=== PATIENT | female | born 1990 | race Caucasian/White ===

== ENCOUNTER 2021-09-12 13:36 | Outpatient (CLI) | payer OTHER, SELFPAY ==
[2021-09-12 14:42] LABS: Thyroid Stimulating Hormone Reflex 18.28 u/IU/mL (0.36-3.74)
[2021-09-12 14:44] LABS: Free T4 Free Thyroxine Reflex 0.93 ng/dL (0.76-1.46)
== END 2021-09-12 13:37 | disposition home or self-care (01) ==
LOC: CHSLAB 13:41
PROVIDERS: PCP Family Medicine; Visit Provider Physician Assistant
DX: E03.9 Hypothyroidism, unspecified (principal)
CPT/HCPCS: 36415; 84439; 84443

== ENCOUNTER 2022-02-25 00:32 | Emergency (ER) | payer OTHER, SELFPAY ==
--- NOTE | 2022-02-25 00:34 | ED.WOUNDLAC ---
HPI - Wound/Laceration General Chief Complaint: Extremity Injury, Upper Stated Complaint: CUT ON TIP OF FINGER Time Seen by Provider: 02/25/22 00:33 Source: patient and RN notes reviewed Mode of arrival: ambulatory Limitations: no limitations History of Present Illness HPI narrative: patient was cleaning and a porcelain bowl fell and broke cutting the tip of her finger. Onset (ago): minute(s) (15) Extremity Location: Right: hand ( tip of middle finger) Place: home Patient tetanus UTD: No Context: accidental Associated symptoms: pain Treatments prior to arrival: bandage Related Data Home Medications Medication Instructions Recorded Confirmed levothyroxine 125 mcg tablet 125 mcg PO DAILY 02/25/22 02/25/22 (Euthyrox) Allergies Allergy/AdvReac Type Severity Reaction Status Date / Time Penicillins Allergy Unknown Verified 10/10/21 15:37 Review of Systems Review of Systems: All systems reviewed & are unremarkable except as noted in HPI and below PMFSH Past Medical History Medical History (Updated 02/25/22 @ 00:58 by Kostas George MD) Hypothyroidism Surgical History Surgical History (Updated 02/25/22 @ 00:36 by Kostas George MD) Hx of cholecystectomy Family History Family History Mother Asthma Sibling Family history of anemia Family history of attention deficit hyperactivity disorder (ADHD) Other Cerebrovascular accident Diabetes mellitus Family history of allergic disorder Family history of cardiovascular disease Hypertension Social History Social History Smoking status: Never smoker Alcohol intake: current Exam Const: General: healthy appearing, no acute distress and alert Nutritional Appearance: well nourished and obese morbidly obese Orientation/consciousness: patient oriented x3 Limitations: no limitations HENMT: Head: normal to inspection Ears: external ears normal Face and sinus: normal facial exam Eyes: Conjunctivae: conjunctivae normal Pupils: Equal, round and reactive pupils present EOM: EOMs intact bilaterally Neck: Neck: normal visual inspection Chest: Chest palpation & inspection: normal inspection of the chest Resp: Effort & Inspection: normal respiratory effort Auscultation: clear to auscultation bilaterally Cardio: Rate: regular rate Rhythm: regular rhythm GI: GI Palp: Yes Soft to palpation and No Tenderness to palpation present (GI) Auscultation: normal bowel sounds Back/Spine/Pelvis: Cervical Spine: cervical ROM normal Thoracic/Lumbar Spine: thoraco-lumbar ROM normal Skin: General skin exam: normal color Wounds: wounds noted flap right palmar 3rd finger size (1 cm) Neuro: General: patient oriented x3, moves all extremities, no focal motor deficits and CN's II-XI intact bilaterally Speech: normal speech Gait exam (Neuro): Normal gait present Extrem: General: normal to inspection and no clubbing, cyanosis or edema Psych: Mental Status: mental status grossly normal Affect: normal affect Attitude: cooperative Course Vital Signs Vital signs: Vital Signs Temperature 36.4 C 02/25/22 00:35 Pulse Rate 95 02/25/22 00:35 Respiratory Rate 20 02/25/22 00:35 Blood Pressure 154/87 H 02/25/22 00:35 Pulse Oximetry 100 02/25/22 00:35 Oxygen Delivery Room Air 02/25/22 00:35 Temperature 36.4 C 02/25/22 00:35 Pulse Rate 95 02/25/22 00:35 Respiratory Rate 20 02/25/22 00:35 Blood Pressure 154/87 H 02/25/22 00:35 Pulse Oximetry 100 02/25/22 00:35 Oxygen Delivery Room Air 02/25/22 00:35 Procedures Laceration Laceration 1: Date: 02/25/22 Site: hand ( Tip of the middle finger) Side (If applicable): right Size (cm): 1 Description: flap Depth: simple, single layer Local Anesthetic: lidocaine 1% Pre-repair: wound explored and irrigated ====
[2022-02-25 00:35] VITALS: BP 154/87; PULSE 95; RESP 20; TEMP 36.4; O2SAT 100
[2022-02-25] MEDS: TETANUS,DIPHTHERIA,AC PERTUSSIS ADULT 0.5 ML (ADACEL) IM (01:15)
[2022-02-25] MEDS: NEOMYCIN/POLYMYXIN/BACITRACIN OINTMENT PACKET 1 PACKET TOPICAL (01:16)
[2022-02-25] MEDS: LIDOCAINE HCL 1% LOCAL INJ 10 ML VIAL INFILTRATE (01:17)
[2022-02-25 01:54] VITALS: BP 130/89; PULSE 85; RESP 18; TEMP 36.4; O2SAT 99
== END 2022-02-25 01:55 | disposition home or self-care (01) ==
PROVIDERS: Emergency Provider Emergency Medicine; PCP Family Medicine
DX: S61.212A Laceration without foreign body of right middle finger without damage to nail, initial encounter (principal); W45.8XXA Other foreign body or object entering through skin, initial encounter
CPT/HCPCS: 12001; 90471; 90715; 99282

== ENCOUNTER 2023-04-16 14:32 | Outpatient (CLI) | payer OTHER, SELFPAY ==
[2023-04-16 15:31] LABS: Thyroid Stimulating Hormone 0.06 uIU/mL (0.36-3.74)
== END 2023-04-16 14:33 | disposition home or self-care (01) ==
PROVIDERS: PCP Family Medicine; Visit Provider Physician Assistant
DX: E03.9 Hypothyroidism, unspecified (principal)
CPT/HCPCS: 36415; 84443

== ENCOUNTER 2024-05-13 14:35 | Emergency (ER) | payer OTHER, SELFPAY ==
[2024-05-13] VITALS (8 sets, daily range): BP systolic 113–135; BP diastolic 65–98; PULSE 78–81; RESP 15–18; TEMP 36.9; O2SAT 97–100
--- NOTE | ~2024-05-13 | XR_ITS ---
XR chest 1V portable DATE: 05/13/2024 14:52 INDICATION: Cough for 6 days TECHNIQUE: Portable upright AP chest on 05/13/2024 at 1450 hours COMPARISON: None FINDINGS: There is prominent consolidation in the right lower lung, likely due to pneumonia. Normal heart size. No hilar or mediastinal enlargement. No pleural effusion or pulmonary vascular con gestion or pneumothorax. IMPRESSION: Prominent right lower lung consolidation consistent with pneumonia Reviewed, dictated and finalized at location [facility]. [facility]
--- NOTE | 2024-05-13 14:40 | ED_ITS ---
HPI - URI/Sore Throat General Chief Complaint: Upper Respiratory Infection Stated Complaint: possible pneumonia Time Seen by Provider: 05/13/24 14:40 Source: patient Mode of arrival: ambulatory Limitations: no limitations History of Present Illness HPI Narrative: 33-year-old female, nonsmoker with a positive family history of asthma presents to the ED with a 5 day history of -- cough with purulent sputum -- fever with chills No chest pain or shortness of breath MD elicited complaint: fever and cough Consistency: constant Description of mucous: yellow Able to tolerate fluids by mouth: Yes Exacerbating factors: nothing Relieving factors: nothing Associated symptoms: denies other symptoms, fever and chills Treatments prior to arrival: none Related Data Home Medications Medication Instructions Recorded Confirmed levothyroxine 125 mcg tablet 150 mcg PO DAILY 02/25/22 05/13/24 (Euthyrox) sertraline 50 mg tablet 50 mg PO DAILY 05/13/24 05/13/24 Allergies Allergy/AdvReac Type Severity Reaction Status Date / Time Penicillins Allergy Unknown Hives Verified 05/13/24 14:39 Review of Systems Review of Systems: All systems reviewed & are unremarkable except as noted in HPI and below Constitutional: Constitutional: Reports as per HPI and Reports no additional constitutional complaints Eyes: Eyes: Reports as per HPI and Reports no additional eye complaints ENT: Reports system reviewed and no additional complaints, except as documented and Reports as per HPI Cardiovascular: Cardiovascular: Reports as per HPI and Reports no additional cardiovascular complaints Respiratory: Respiratory: Reports as per HPI, Reports no additional respiratory complaints, Reports chest congestion and Reports cough Gastrointestinal: Gastrointestinal: Reports as per HPI and Reports no additional gastrointestinal complaints Genitourinary: Genitourinary: Reports no additional female genitourinary complaints Comments: history of BTL Musculoskeletal: Musculoskeletal: Reports no additional musculoskeletal complaints and Reports as per HPI Integumentary/Breasts: Skin/Breast: Reports system reviewed and no additional complaints, except as docu and Reports as per HPI Neurologic: Reports system reviewed and no additional complaints, except as documented and Reports as per HPI Psychiatric: Psychiatric: Reports no additional psychiatric complaints and Reports as per HPI Endocrine: Endocrine: Reports no additional endocrine complaints and Reports as per HPI Hematologic/Lymphatic: Hematologic/Lymphatic: Reports no additional hematologic/lymphatic complaints and Reports as per HPI Allergic/Immunologic: Allergic/Immunologic: Reports no additional allergic/immunologic complaints and Reports as per HPI PMFSH Past Medical History Medical History Hypothyroidism Surgical History Surgical History Hx of cholecystectomy Family History Family History Mother Asthma Sibling Family history of anemia Family history of attention deficit hyperactivity disorder (ADHD) Other Cerebrovascular accident Diabetes mellitus Family history of allergic disorder Family history of cardiovascular disease Hypertension Social History Social History Smoking status: Never smoker Alcohol intake: current Exam Narrative: afebrile. Vitals are stable oxygen saturation 97% on room air. Const: General: healthy appearing Orientation/consciousness: patient oriented x3 Limitations: no limitations HENMT: Head: normal to inspection Ears: external ears normal and TM's normal bilaterally ( right tympanic membrane is scarred.) Face/Nose/Sinus: Normal external nose present Face and sinus: normal facial exam Mouth: Yes Normal oral and palatal mucosa present Throat: posterior oropharynx normal Eyes: Conjunctivae: conjunctivae normal Pupils: Equal, round and reactive pupils present EOM: EOMs intact bilaterally Direct Ophthalmoscopy: no photophobia Neck: Neck: normal visual inspection, no lymphadenopathy and no meningeal signs Chest: Chest palpation & inspection: normal inspection of the chest Resp: Effort & Inspection: normal respiratory effort Auscultation: rhonchi and diminished lung sounds Cardio: Rate: regular rate Rhythm: regular rhythm GI: GI Palp: Yes Soft to palpation Auscultation: normal bowel sounds : General: Yes no CVA tenderness Back/Spine/Pelvis: Back: no CVA tenderness Skin: General skin exam: normal color Rashes: no rashes Wounds: no woun ds Neuro: General: patient oriented x3, moves all extremities, no meningeal signs, no focal motor deficits and CN's II-XI intact bilaterally Cranial nerves: Yes Nystagmus not present Speech: normal speech Extrem: General: normal to inspection and no clubbing, cyanosis or edema Psych: Mental Status: mental status grossly normal Affect: normal affect Course Course Emergency Course: Cough with purulent sputum-- patient was noted to have right lower lobe pneumonia. The patient has a major reaction with penicillin. Do not want to try cephalosporins any of the major reaction to penicillin. Will treat her with Levaquin. The patient tested negative for influenza/ RSV/ COVID. Vital Signs Vital signs: Vital Signs Temperature 36.9 C 05/13/24 14:38 Pulse Rate 81 05/13/24 14:38 Respiratory Rate 18 05/13/24 14:38 Blood Pressure 135/89 05/13/24 14:38 Pulse Oximetry 97 05/13/24 14:38 Oxygen Delivery Room Air 05/13/24 14:38 Temperature 36.9 C 05/13/24 14:38 Pulse Rate 81 05/13/24 14:38 Respiratory Rate 18 05/13/24 14:38 Blood Pressure 135/89 05/13/24 14:38 Pulse Oximetry 97 05/13/24 14:42 Oxygen Delivery Room Air 05/13/24 14:42 MDM - URI/Sore Throat MDM Narrative Medical decision making narrative: Right lower lobe pneumonia Differential Diagnosis Differential diagnosis: Likely upper respiratory infection, viral infection and bronchitis Lab Data Attestation: I reviewed the patient's lab results. 05/13/24 16:02 05/13/24 16:02 Labs: Lab Results 05/13/24 05/13/24 Range/Units 15:06 16:02 WBC 5.0 (4.8-10.8) K/mm3 RBC 4.58 (4.20-5.40) M/mm3 Hgb 9.7 L (12.0-15.0) g/dL Hct 33.0 L (35.0-49.0) % MCV 72.1 L (78.0-102.0) fL MCH 21.2 L (27.0-31.0) pg MCHC 29.4 L (32-36) g/dL RDW 16.2 H (11.6-14.4) % Plt Count 232 (150-420) K/mm3 MPV 9.8 (9.2-11.8) fl Immature Gran % (Auto) 0.6 H (0.0-0.0) % Neut % (Auto) 59.9 (50.0-70.0) % Lymph % (Auto) 25.5 (18.0-42.0) % [place] % (Auto) 9.8 (2.0-11.0) % Eos % (Auto) 3.0 (1.0-6.0) % Baso % (Auto) 1.2 H (0.0-1.0) % Lymph # (Auto) 1.27 (1.10-4.50) K/mm3 [place] # (Auto) 0.49 (0.10-0.90) K/mm3 Eos # (Auto) 0.15 (0.02-0.50) K/mm3 Baso # (Auto) 0.06 (0.00-0.10) K/mm3 Abs Immat Gran (auto) 0.03 H (0.00-0.00) K/mm3 Absolute Neuts (auto) 2.98 (1.70-7.20) K/mm3 Absolute Nucleated RBC 0.00 (0.00-0.00) K/mm3 Nucleated RBC % 0.0 (0-0.0) % Sodium 140 (136-145) mmol/L Potassium 3.3 L (3.5-5.1) mmol/L Chloride 103 (98-108) mmol/L Carbon Dioxide 26 (21-32) mmol/L Anion Gap 11 (4-12) mmol/L BUN 7 (7-18) mg/dL Creatinine 0.87 (0.55-1.02) mg/dL Estim Creat Clear Calc 115 ml/min Estimated GFR > 60 (59 - ) Glucose 88 (70-99) mg/dL Calculated Osmolality 287 (285-295) mOsm/kg Lactic Acid 1.1 (0.4-2.0) mmol/L Calcium 8.6 (8.5-10.1) mg/dL Total Bilirubin 0.4 (0.00-1.00) mg/dL AST 21 (15-37) U/L ALT 20 (14-59) U/L Alkaline Phosphatase 73 (46-116) U/L Total Protein 7.2 (6.4-8.2) g/dL Albumin 3.1 L (3.4-5.0) g/dL Influenza A (RT-PCR) Negative (Negative) Influenza B (RT-PCR) Negative (Negative) RSV (RT-PCR) Negative (Negative) SARS-CoV-2 RNA (RT-PCR) Negative (Negative) Discharge Plan Discharge Clinical Impression: Pneumonia Qualifiers: Pneumonia type: due to unspecified organism Laterality: right Lung location: lower lobe of lung Qualified Code(s): J18.9 - Pneumonia, unspecified organism Patient Disposition: Home, Self-Care Condition: Stable Instructions: Antibiotic Form, Pneumonia (ED) Patient Language: Spanish Prescriptions: New levofloxacin 750 mg tablet 750 mg PO DAILY 5 Days Qty: 5 0RF No Action sertraline 50 mg tablet 50 mg PO DAILY levothyroxine [Euthyrox] 125 mcg tablet 150 mcg PO DAILY Follow-up/Referrals: Mg Rojas M.D. [Primary Care Provider] - Time of Disposition: 17:02
[2024-05-13] MEDS: IPRATROPIUM 0.5 MG/ALBUTEROL SULFATE 2.5 MG AMPUL.NEB 3 ML INHALATION (14:53)
[2024-05-13] MEDS: levoFLOXacin 750 MG/D5W 150 ML 750 MG/150 ML BAG 100 MG IVPB (15:23)
--- NOTE | 2024-05-13 15:23 | PC.NURSE ---
IV abx scanned and ready to start, Blood cultures not drawn, lab called to draw, will start after cultures are obtained.
--- NOTE | 2024-05-13 15:23 | PC.NURSE ---
Covid culture sent to lab
--- NOTE | 2024-05-13 16:03 | PC.NURSE ---
blood cultures obtained. antibiotics infusing at this time.
[2024-05-13 16:22] LABS: SARS-CoV-2 RNA PCR Negative (Negative)
[2024-05-13 16:23] LABS: Influenza A QL RT-PCR Negative (Negative); Influenza B QL RT-PCR Negative (Negative); RSV RNA, RT-PCR Negative (Negative)
[2024-05-13 16:24] LABS: Basophils Absolute Auto 0.06 K/mm3 (0.00-0.10); Basophils Percent Auto 1.2 % (0.0-1.0); Eosinophils Absolute Auto 0.15 K/mm3 (0.02-0.50); Hemoglobin 9.7 g/dL (12.0-15.0); Immature Granulocyte Absolute 0.03 K/mm3 (0.00-0.00); Immature Granulocyte Percent A 0.6 % (0.0-0.0); Lymphocytes Absolute Auto 1.27 K/mm3 (1.10-4.50); Lymphocytes Percent Auto 25.5 % (18.0-42.0); Mean Corpuscular HGB Conc 29.4 g/dL (32-36); Mean Corpuscular Hemoglobin 21.2 pg (27.0-31.0); Mean Corpuscular Volume 72.1 fL (78.0-102.0); Mean Platelet Volume 9.8 fl (9.2-11.8); Monocytes Absolute Auto 0.49 K/mm3 (0.10-0.90); Monocytes Percent Auto 9.8 % (2.0-11.0); Neutrophils Absolute Auto 2.98 K/mm3 (1.70-7.20); Neutrophils Percent Auto 59.9 % (50.0-70.0); Platelet Count Result 232 K/mm3 (150-420); Red Blood Count 4.58 M/mm3 (4.20-5.40); Red Cell Distribution Width 16.2 % (11.6-14.4)
[2024-05-13 16:43] LABS: Alanine Aminotransferase 20 U/L (14-59); Albumin Level 3.1 g/dL (3.4-5.0); Alkaline Phosphatase 73 U/L (46-116); Anion Gap 11 mmol/L (4-12); Aspartate Amino Transferase 21 U/L (15-37); Bilirubin,Total 0.4 mg/dL (0.00-1.00); Blood Urea Nitrogen 7 mg/dL (7-18); Calcium 8.6 mg/dL (8.5-10.1); Carbon Dioxide 26 mmol/L (21-32); Chloride 103 mmol/L (98-108); Estimated CRCL calculation 115 ml/min; Estimated Glomerular Filt Rate > 60; Glucose 88 mg/dL (70-99); Osmolality Calculated 287 mOsm/kg (285-295); Potassium 3.3 mmol/L (3.5-5.1); Sodium 140 mmol/L (136-145); Total Protein 7.2 g/dL (6.4-8.2)
[2024-05-13 16:47] LABS: Lactic Acid Reflex 1.1 mmol/L (0.4-2.0)
[2024-05-13 17:41] LABS: Thyroid Stimulating Hormone 9.01 uIU/mL (0.36-3.74)
--- NOTE | 2024-05-14 10:37 | PC.NURSE ---
Pharmacy is closed, prescription called into [facility] in [place] per patient request. Message left at [facility] to cancel prescription.
--- NOTE | 2024-05-15 12:33 | PC.NURSE ---
preliminary blood culture results x2: no growth to date.
== END 2024-05-13 17:19 | disposition home or self-care (01) ==
PROVIDERS: Emergency Provider Internal Medicine Critical Care Medicine; PCP Family Medicine
DX: J18.9 Pneumonia, unspecified organism (principal); E03.9 Hypothyroidism, unspecified; Z79.899 Other long term (current) drug therapy; Z20.822 Contact with and (suspected) exposure to COVID-19
CPT/HCPCS: 36415; 71045; 80053; 83605; 84443; 85025; 87040; 87637; 96365; 96366; 99284; J1956